=== PATIENT | male | born 1960 | race Caucasian/White ===

== ENCOUNTER 2017-07-09 05:02 | Emergency (ER) | payer OTHER, MEDICARE, MEDICAID ==
[~2017-07-09] VITALS: Ht 170.2 cm; Wt 65.4 kg
[2017-07-09] MEDS ORDERED: ALBU6.7H INH (06:22)
[2017-07-09] MEDS ORDERED: ipratropium/albuterol 3ml nebule NEB ONE (06:25)
[2017-07-09 07:19] VITALS: BP 121/68
== END 2017-07-09 07:20 | disposition home or self-care (01) ==
LOC: ER 05:03
DX: L97.529 Non-pressure chronic ulcer of other part of left foot with unspecified severity (principal); J44.1 Chronic obstructive pulmonary disease with (acute) exacerbation; E78.00 Pure hypercholesterolemia, unspecified; F17.200 Nicotine dependence, unspecified, uncomplicated; Z90.49 Acquired absence of other specified parts of digestive tract; Z59.0 Homelessness
CPT/HCPCS: 94640; 94760; 99283; A6449

== ENCOUNTER 2017-07-15 01:20 | Emergency (ER) | payer OTHER, MEDICARE, MEDICAID ==
[~2017-07-15] VITALS: Ht 162.6 cm; Wt 64.4 kg
[~2017-07-15 01:20] MED LIST: ALBU6.7H INH
[2017-07-15] MEDS ORDERED: HYDR-569 PO (01:48)
[2017-07-15] MEDS ORDERED: IBUP-1984 PO (01:48)
[2017-07-15] MEDS ORDERED: ALBU8HFA PO (01:49)
[2017-07-15 01:53] VITALS: BP 128/61
== END 2017-07-15 01:54 | disposition home or self-care (01) ==
LOC: ER 01:21
DX: M54.2 Cervicalgia (principal); E78.00 Pure hypercholesterolemia, unspecified; J44.9 Chronic obstructive pulmonary disease, unspecified; F17.210 Nicotine dependence, cigarettes, uncomplicated; Z59.0 Homelessness; Z90.49 Acquired absence of other specified parts of digestive tract; Z79.899 Other long term (current) drug therapy; Z56.0 Unemployment, unspecified
CPT/HCPCS: 99283

== ENCOUNTER 2017-07-18 00:07 | Emergency (ER) | payer OTHER, MEDICARE, MEDICAID ==
[~2017-07-18] VITALS: Ht 167.6 cm; Wt 64.0 kg
[~2017-07-18 00:07] MED LIST changes: +ALBU8HFA PO; +HYDR-569 PO; +IBUP-1984 PO
[2017-07-18 01:37] LABS: ACETAMINOPHEN < 2.0 UG/ML (10-30); ALANINE AMINOTRANSFERASE 32 U/L (12-78); ALBUMIN/GLOBULIN RATIO 0.8 (1.1-1.5); ALKALINE PHOSPHATASE 66 IU/L (46-116); ANION GAP 6 (8-16); ASPARTATE AMINO TRANSFERASE 32 U/L (10-37); BILIRUBIN,TOTAL 0.3 MG/DL (0.1-1.0); BLOOD UREA NITROGEN 9 MG/DL (7-18); BUN/CREATININE RATIO 14.3 (5.4-32.0); CALCIUM 8.8 MG/DL (8.5-10.1); CHLORIDE 104 MMOL/L (99-107); CREATININE 0.63 MG/DL (0.60-1.10); ETHANOL < 0.010 GM/DL (0.0-0.010); GLUCOSE 108 MG/DL (70-104); POTASSIUM 3.6 MMOL/L (3.5-5.1); SODIUM 138 MMOL/L (135-145); TOTAL CARBON DIOXIDE 27.9 MMOL/L (24-32); TOTAL PROTEIN 6.9 G/DL (6.4-8.2); eGFR > 90 ML/MIN
[2017-07-18 01:55] LABS: CLARITY,URINE CLEAR (Clear); COLOR,URINE STRAW (Yellow); GLUCOSE, URINE NEGATIVE (Neg); KETONES,URINE NEGATIVE (Neg); LEUKOCYTE ESTERASE ,URINE NEGATIVE (Neg); NITRITES, URINE NEGATIVE (Neg); OCCULT BLOOD,URINE NEGATIVE (Neg); PROTEIN,URINE NEGATIVE (Neg); UROBILINOGEN,URINE 0.2 E.U/dL (0.2-1.0)
[2017-07-18 02:00] LABS: URINE AMPHETAMINE SCREEN NEGATIVE (Neg); URINE BARBITUATE SCREEN NEGATIVE (Neg); URINE BENZODIAZEPINES SCREEN NEGATIVE (Neg); URINE CANNABINOID SCREEN POSITIVE (Neg); URINE COCAINE SCREEN NEGATIVE (Neg); URINE METHADONE SCREEN NEGATIVE (Neg); URINE OPIATE SCREEN NEGATIVE (Neg); URINE PHENCYCLIDINE SCREEN NEGATIVE (Neg)
[2017-07-18 02:05] LABS: UA COLLECTION TYPE CLN CATCH MIDSTREAM
[2017-07-18 02:12] LABS: BASOPHILS # (AUTO) 0.2 X10'3 (0-0.2); BASOPHILS % (AUTO) 1.6 % (0-1); EOSINOPHILS # (AUTO) 0.2 X10'3 (0-0.9); EOSINOPHILS % (AUTO) 1.6 % (0-6); HEMATOCRIT 37.9 % (42.0-52.0); HEMOGLOBIN 12.5 g/dl (14.0-17.9); LYMPHOCYTES # (AUTO) 2.1 X10'3 (1.1-4.8); LYMPHOCYTES % (AUTO) 19.7 % (21-51); MEAN CORPUSCULAR HEMOGLOBIN 28.9 PG (27.0-31.0); MEAN CORPUSCULAR HGB CONC 33.1 % (33.0-36.5); MEAN CORPUSCULAR VOLUME 87.3 FL (78-98); MEAN PLATELET VOLUME 8.8 FL (7.4-10.4); MONOCYTES # (AUTO) 0.8 X10'3 (0-0.9); MONOCYTES % (AUTO) 7.1 % (2-12); NEUTROPHILS # (AUTO) 7.4 X10'3 (1.8-7.7); PLATELET COUNT 412 X10'3 (140-440); RED BLOOD COUNT 4.34 X10'6 (4.70-6.10); RED CELL DISTRIBUTION WIDTH 15.9 % (11.5-14.5); WHITE BLOOD COUNT 10.7 X10'3 (4.5-11.0)
[2017-07-18] MEDS ORDERED: LORazepam 2 mg/ml vial IM PRN (06:35)
[2017-07-18] MEDS ORDERED: haloperidol lactate 5mg/ml inj IM PRN (06:35)
[2017-07-18] MEDS ORDERED: haloperidol 1mg tablet PO PRN (06:35)
[2017-07-18] MEDS ORDERED: LORazepam 0.5 MG tablet PO PRN (06:35)
[2017-07-18 11:10] VITALS: BP 141/73
== END 2017-07-18 11:35 | disposition home or self-care (01) ==
LOC: ER 00:08
DX: R45.851 Suicidal ideations (principal); E78.00 Pure hypercholesterolemia, unspecified; F17.200 Nicotine dependence, unspecified, uncomplicated; F20.9 Schizophrenia, unspecified; F12.90 Cannabis use, unspecified, uncomplicated; Z59.0 Homelessness; Z90.49 Acquired absence of other specified parts of digestive tract; Z56.0 Unemployment, unspecified
CPT/HCPCS: 36415; 80053; 80178; 80305; 80320; 80329; 81003; 84443; 85025; 99284

== ENCOUNTER 2018-02-09 08:38 | Emergency (ER) | payer MEDICARE, MEDICAID, OTHER ==
[~2018-02-09] VITALS: Ht 167.6 cm; Wt 59.1 kg
[~2018-02-09 08:38] MED LIST changes: -ALBU8HFA PO; -IBUP-1984 PO
[2018-02-09 09:27] LABS: BASOPHILS # (AUTO) 0.1 X10'3 (0-0.2); BASOPHILS % (AUTO) 1.3 % (0-1); EOSINOPHILS # (AUTO) 0.1 X10'3 (0-0.9); EOSINOPHILS % (AUTO) 1.1 % (0-6); HEMOGLOBIN 14.7 g/dl (14.0-17.9); LYMPHOCYTES # (AUTO) 1.7 X10'3 (1.1-4.8); LYMPHOCYTES % (AUTO) 21.2 % (21-51); MEAN CORPUSCULAR HEMOGLOBIN 29.9 PG (27.0-31.0); MEAN CORPUSCULAR HGB CONC 33.4 % (33.0-36.5); MEAN CORPUSCULAR VOLUME 89.5 FL (78-98); MEAN PLATELET VOLUME 8.4 FL (7.4-10.4); MONOCYTES # (AUTO) 0.5 X10'3 (0-0.9); MONOCYTES % (AUTO) 5.9 % (2-12); NEUTROPHILS # (AUTO) 5.5 X10'3 (1.8-7.7); NEUTROPHILS % (AUTO) 70.5 % (42-75); PLATELET COUNT 320 X10'3 (140-440); RED BLOOD COUNT 4.91 X10'6 (4.70-6.10); WHITE BLOOD COUNT 7.8 X10'3 (4.5-11.0)
[2018-02-09] MEDS ORDERED: diphenhydrAMINE 50 mg/ml inj IM ONE (09:40)
[2018-02-09] MEDS ORDERED: haloperidol lactate 5mg/ml inj IM ONE (09:40)
[2018-02-09] MEDS ORDERED: LORazepam 2 mg/ml vial IM ONE (09:40)
[2018-02-09 09:42] LABS: ALANINE AMINOTRANSFERASE 29 U/L (12-78); ALBUMIN 4.1 G/DL (3.4-5.0); ALBUMIN/GLOBULIN RATIO 1.1 (1.1-1.5); ALKALINE PHOSPHATASE 82 IU/L (46-116); ANION GAP 11 (8-16); ASPARTATE AMINO TRANSFERASE 25 U/L (10-37); BILIRUBIN,TOTAL 0.6 MG/DL (0.1-1.0); BLOOD UREA NITROGEN 14 MG/DL (7-18); CALCIUM 9.3 MG/DL (8.5-10.1); CHLORIDE 105 MMOL/L (99-107); GLUCOSE 105 MG/DL (70-104); POTASSIUM 4.4 MMOL/L (3.5-5.1); SODIUM 140 MMOL/L (135-145); TOTAL CARBON DIOXIDE 24.2 MMOL/L (24-32); eGFR 78 ML/MIN
[2018-02-09 09:50] LABS: ETHANOL < 0.010 GM/DL (0.0-0.010)
[2018-02-09] MEDS ORDERED: SERT25TA PO (11:21)
[2018-02-09] MEDS ORDERED: FLUP5TAB PO (11:21)
[2018-02-09] MEDS ORDERED: FLUP1TAB PO (11:21)
[2018-02-09] MEDS ORDERED: HYDR-569 PO (11:21)
[2018-02-09] MEDS ORDERED: ATOR20TA PO (11:21)
[2018-02-09] MEDS ORDERED: IBUP100O20 PO (11:21)
[2018-02-09] MEDS ORDERED: QUET-1 PO (11:21)
[2018-02-09 13:11] LABS: CLARITY,URINE SLIGHTLY CLOUDY (Clear); COLOR,URINE YELLOW (Yellow); GLUCOSE, URINE NEGATIVE (Neg); KETONES,URINE 15 mg/dl (Neg); LEUKOCYTE ESTERASE ,URINE NEGATIVE (Neg); NITRITES, URINE NEGATIVE (Neg); OCCULT BLOOD,URINE TRACE-INTACT (Neg); PH,URINE 5.5 (4.8-8.0); PROTEIN,URINE NEGATIVE (Neg); UROBILINOGEN,URINE 0.2 E.U/dL (0.2-1.0)
[2018-02-09 13:12] LABS: UA COLLECTION TYPE STRAIGHT CATH
[2018-02-09 13:18] LABS: BACTERIA,URINE NONE SEEN /HPF (Neg); RBC,URINE 0-2 /HPF (0-2); WBC,URINE 0-4 /HPF (0-4)
[2018-02-09 13:19] LABS: AMORPHOUS URATES 2+; MUCUS STRANDS NONE SEEN /LPF (Neg); SQUAMOUS EPITHELIAL CELL,UR NONE SEEN /LPF (FEW); TRANSITIONAL EPI CELLS,URINE FEW /HPF
[2018-02-09 13:21] LABS: URINE AMPHETAMINE SCREEN NEGATIVE (Neg); URINE BARBITUATE SCREEN NEGATIVE (Neg); URINE BENZODIAZEPINES SCREEN NEGATIVE (Neg); URINE CANNABINOID SCREEN POSITIVE (Neg); URINE COCAINE SCREEN NEGATIVE (Neg); URINE METHADONE SCREEN NEGATIVE (Neg); URINE OPIATE SCREEN NEGATIVE (Neg); URINE PHENCYCLIDINE SCREEN NEGATIVE (Neg)
[2018-02-09] MEDS ORDERED: QUETIAPINE 150 MG TAB.SR.24H PO SCH ×2 (21:00)
[2018-02-09] MEDS ORDERED: atorvastatin 20mg tablet PO SCH (21:00)
[2018-02-10 07:09] LABS: ACETAMINOPHEN < 2.0 UG/ML (10-30)
[2018-02-10] MEDS ORDERED: sertraline 50mg tablet PO SCH (08:00)
[2018-02-10 18:19] VITALS: BP 144/71
== END 2018-02-10 18:25 ==
LOC: ER 08:39
DX: F29 Unspecified psychosis not due to a substance or known physiological condition (principal); E78.00 Pure hypercholesterolemia, unspecified; F12.90 Cannabis use, unspecified, uncomplicated; Z90.49 Acquired absence of other specified parts of digestive tract; Z59.0 Homelessness; Z56.0 Unemployment, unspecified; Z79.899 Other long term (current) drug therapy
CPT/HCPCS: 36415; 80053; 80305; 80320; 80329; 81001; 84443; 85025; 93005; 96372; 99285; J1200; J1630; J2060

== ENCOUNTER 2021-08-12 22:54 | Emergency (ER) | payer OTHER, MEDICARE, MEDICAID ==
[~2021-08-12] VITALS: Ht 170.2 cm; Wt 76.4 kg
[~2021-08-12 22:54] MED LIST changes: -ALBU6.7H INH; +ATOR20TA PO; +FLUP1TAB PO; +FLUP5TAB4 PO; +HYDR-4383 PO; -HYDR-569 PO; +IBUP-2766 PO; +QUET-1 PO; +SERT25TA PO
[2021-08-12 23:08] VITALS: BP 127/67
[2021-08-13 00:33] LABS: CLARITY,URINE CLEAR (Clear); COLOR,URINE YELLOW (Yellow); GLUCOSE, URINE NEGATIVE (Neg); KETONES,URINE 15 mg/dl (Neg); LEUKOCYTE ESTERASE ,URINE NEGATIVE (Neg); NITRITES, URINE NEGATIVE (Neg); OCCULT BLOOD,URINE NEGATIVE (Neg); PROTEIN,URINE TRACE mg/dl (Neg); UROBILINOGEN,URINE 0.2 E.U/dL (0.2-1.0)
[2021-08-13 00:39] LABS: UA COLLECTION TYPE NON-SPECIFIED
[2021-08-13 00:40] LABS: BACTERIA,URINE NONE SEEN /HPF (Neg); MUCUS STRANDS FEW /LPF (Neg); RBC,URINE 0-2 /HPF (0-2); SQUAMOUS EPITHELIAL CELL,UR FEW /LPF (FEW); WBC,URINE 0-4 /HPF (0-4)
[2021-08-13 00:45] LABS: URINE AMPHETAMINE SCREEN POSITIVE (Neg); URINE BARBITUATE SCREEN NEGATIVE (Neg); URINE BENZODIAZEPINES SCREEN NEGATIVE (Neg); URINE CANNABINOID SCREEN POSITIVE (Neg); URINE COCAINE SCREEN NEGATIVE (Neg); URINE METHADONE SCREEN NEGATIVE (Neg); URINE OPIATE SCREEN NEGATIVE (Neg); URINE PHENCYCLIDINE SCREEN NEGATIVE (Neg)
[2021-08-13 02:01] LABS: ALANINE AMINOTRANSFERASE 34 U/L (12-78); ALBUMIN 3.4 G/DL (3.4-5.0); ALBUMIN/GLOBULIN RATIO 0.9 (1.1-1.5); ALKALINE PHOSPHATASE 83 IU/L (46-116); ANION GAP 15 (8-16); ASPARTATE AMINO TRANSFERASE 62 U/L (10-37); BASOPHILS % (AUTO) 0.1 % (0-1); BILIRUBIN,TOTAL 0.6 MG/DL (0.1-1.0); BLOOD UREA NITROGEN 13 MG/DL (7-18); BUN/CREATININE RATIO 15.5 (5.4-32.0); CALCIUM 8.8 MG/DL (8.5-10.1); CHLORIDE 101 MMOL/L (99-107); CREATININE 0.84 MG/DL (0.60-1.10); EOSINOPHILS % (AUTO) 0.1 % (0-6); GLUCOSE 90 MG/DL (70-104); HEMOGLOBIN 12.4 g/dl (14.0-17.9); LYMPHOCYTES # (AUTO) 1.3 X10'3 (1.1-4.8); LYMPHOCYTES % (AUTO) 10.5 % (21-51); MEAN CORPUSCULAR HEMOGLOBIN 30.6 PG (27.0-31.0); MEAN CORPUSCULAR HGB CONC 33.6 g/dL (33.0-36.5); MEAN CORPUSCULAR VOLUME 91.1 FL (78-98); MEAN PLATELET VOLUME 7.9 FL (7.4-10.4); MONOCYTES # (AUTO) 1.2 X10'3 (0-0.9); MONOCYTES % (AUTO) 9.8 % (2-12); NEUTROPHILS # (AUTO) 10.1 X10'3 (1.8-7.7); NEUTROPHILS % (AUTO) 79.5 % (42-75); PLATELET COUNT 317 X10'3 (140-440); POTASSIUM 3.8 MMOL/L (3.5-5.1); RED BLOOD COUNT 4.06 X10'6 (4.70-6.10); RED CELL DISTRIBUTION WIDTH 14.2 % (11.5-14.5); SODIUM 141 MMOL/L (135-145); TOTAL CARBON DIOXIDE 24.9 MMOL/L (24-32); TOTAL PROTEIN 7.2 G/DL (6.4-8.2); WHITE BLOOD COUNT 12.7 X10'3 (4.5-11.0); eGFR > 90 ML/MIN
== END 2021-08-13 04:26 ==
LOC: ER 22:55
DX: S06.9X9A Unspecified intracranial injury with loss of consciousness of unspecified duration, initial encounter (principal); R55 Syncope and collapse; E78.00 Pure hypercholesterolemia, unspecified; F20.9 Schizophrenia, unspecified; F12.90 Cannabis use, unspecified, uncomplicated; Z90.49 Acquired absence of other specified parts of digestive tract; Z56.0 Unemployment, unspecified; Z59.00 Homelessness unspecified; Z79.899 Other long term (current) drug therapy; X58.XXXA Exposure to other specified factors, initial encounter; Y93.89 Activity, other specified; Y92.89 Other specified places as the place of occurrence of the external cause; Y99.8 Other external cause status
CPT/HCPCS: 36415; 70450; 72125; 72128; 80053; 80305; 81001; 85025; 99284

== ENCOUNTER 2021-08-24 16:53 | Emergency (ER) | payer OTHER, MEDICAID ==
[~2021-08-24] VITALS: Ht 170.2 cm; Wt 76.4 kg
[2021-08-24 16:56] VITALS: BP 139/73
--- NOTE | 2021-08-24 17:10 | NUR ---
Pt states he is here for dehydration. unwilling to discuss hallucinations and cannot accurately assess suicidal or homicidal ideations at this time. unwilling to discuss what voices are saying. states he is not homicidal or suicidal at this time.
--- NOTE | 2021-08-24 17:35 | NUR ---
Pt attempted to leave the unit. Tech redirected pt to room. Pt laying down on marc now.
[2021-08-24 17:40] LABS: BASOPHILS # (AUTO) 0.1 X10'3 (0-0.2); BASOPHILS % (AUTO) 1.1 % (0-1); EOSINOPHILS # (AUTO) 0.2 X10'3 (0-0.9); EOSINOPHILS % (AUTO) 1.9 % (0-6); HEMATOCRIT 37.9 % (42.0-52.0); HEMOGLOBIN 12.9 g/dl (14.0-17.9); LYMPHOCYTES % (AUTO) 35.5 % (21-51); MEAN CORPUSCULAR HEMOGLOBIN 31.1 PG (27.0-31.0); MEAN CORPUSCULAR HGB CONC 33.9 g/dL (33.0-36.5); MEAN CORPUSCULAR VOLUME 91.8 FL (78-98); MEAN PLATELET VOLUME 7.5 FL (7.4-10.4); MONOCYTES # (AUTO) 0.8 X10'3 (0-0.9); MONOCYTES % (AUTO) 9.9 % (2-12); NEUTROPHILS # (AUTO) 4.4 X10'3 (1.8-7.7); NEUTROPHILS % (AUTO) 51.6 % (42-75); PLATELET COUNT 362 X10'3 (140-440); RED BLOOD COUNT 4.13 X10'6 (4.70-6.10); RED CELL DISTRIBUTION WIDTH 13.8 % (11.5-14.5); WHITE BLOOD COUNT 8.6 X10'3 (4.5-11.0)
[2021-08-24 17:48] LABS: URINE AMPHETAMINE SCREEN NEGATIVE (Neg); URINE BARBITUATE SCREEN NEGATIVE (Neg); URINE BENZODIAZEPINES SCREEN NEGATIVE (Neg); URINE CANNABINOID SCREEN POSITIVE (Neg); URINE COCAINE SCREEN NEGATIVE (Neg); URINE METHADONE SCREEN NEGATIVE (Neg); URINE OPIATE SCREEN NEGATIVE (Neg); URINE PHENCYCLIDINE SCREEN NEGATIVE (Neg)
[2021-08-24 17:54] LABS: ALANINE AMINOTRANSFERASE 20 U/L (12-78); ALBUMIN 3.1 G/DL (3.4-5.0); ALBUMIN/GLOBULIN RATIO 0.8 (1.1-1.5); ALKALINE PHOSPHATASE 78 IU/L (46-116); ANION GAP 6 (8-16); ASPARTATE AMINO TRANSFERASE 19 U/L (10-37); BILIRUBIN,TOTAL 0.2 MG/DL (0.1-1.0); BLOOD UREA NITROGEN 11 MG/DL (7-18); BUN/CREATININE RATIO 17.2 (5.4-32.0); CALCIUM 8.5 MG/DL (8.5-10.1); CHLORIDE 107 MMOL/L (99-107); CREATININE 0.64 MG/DL (0.60-1.10); ETHANOL < 0.010 GM/DL (0.0-0.010); GLUCOSE 109 MG/DL (70-104); POTASSIUM 4.4 MMOL/L (3.5-5.1); SODIUM 142 MMOL/L (135-145); TOTAL PROTEIN 6.8 G/DL (6.4-8.2); eGFR > 90 ML/MIN
--- NOTE | 2021-08-24 18:27 | NUR ---
Pt sitting on bed eating sandwich. Pt has tried to get up and walk around ED and has been redirected by RN. Pt is pleasant and goes back to his room when asked and has remained there since.
[2021-08-24] MEDS ORDERED: LORazepam 1 MG tablet PO ONE (18:45)
--- NOTE | 2021-08-24 18:51 | NUR ---
Called and talked to patient's Melodie to explain situation and why patient is being discharged. Patient's was agreeable after explanation and gave home address to return patient to. Patient expressed understanding as well.
--- NOTE | 2021-08-24 18:55 | NUR ---
PT DISCHARGED TO [id number] [facility]. ADDRESS PROVIDED BY OF PT AND CONFIRMED BY PT.
== END 2021-08-24 18:56 | disposition home or self-care (01) ==
LOC: ER 16:54
DX: F20.9 Schizophrenia, unspecified (principal); E11.9 Type 2 diabetes mellitus without complications; E78.00 Pure hypercholesterolemia, unspecified; F12.90 Cannabis use, unspecified, uncomplicated; Z90.49 Acquired absence of other specified parts of digestive tract; Z56.0 Unemployment, unspecified; Z79.899 Other long term (current) drug therapy
CPT/HCPCS: 36415; 80053; 80305; 80320; 85025; 99283; 99285